=== PATIENT | female | born 1955 | race Caucasian/White ===

== ENCOUNTER 2022-08-24 05:27 | Observation (INO) ==
--- NOTE | 2022-08-08 15:00 | PAT Medication Instructions ---
Medication Instructions Date of Service August 08, 2022 Home Medications acetaminophen 300 mg-codeine 30 mg tablet 1 tab PO DAILY PRN acetaminophen 500 mg capsule 500 mg PO Q6H PRN bupropion HCl 150 mg 24 hr tablet, extended release 150 mg PO QAM cholecalciferol (vitamin D3) 125 mcg (5,000 unit) tablet (Vitamin D3) 125 mcg PO QAM ergocalciferol (vitamin D2) 1,250 mcg (50,000 unit) capsule (Vitamin D2) 1,250 mcg PO WK escitalopram oxalate 20 mg tablet 20 mg PO QAM teriparatide 20 mcg/dose (600 mcg/2.4 mL) subcutaneous pen injector (Forteo) 20 mcg subcut QAM Continue as directed teriparatide 20 mcg/dose (600 mcg/2.4 mL) subcutaneous pen injector (Forteo) 20 mcg subcut QAM DO NOT take the morning of surgery cholecalciferol (vitamin D3) 125 mcg (5,000 unit) tablet (Vitamin D3) 125 mcg PO QAM ergocalciferol (vitamin D2) 1,250 mcg (50,000 unit) capsule (Vitamin D2) 1,250 mcg PO WK Take morning of surgery With a small sip of water, OTHERWISE NOTHING TO EAT OR DRINK AFTER MIDNIGHT: acetaminophen 300 mg-codeine 30 mg tablet 1 tab PO DAILY PRN(if needed) acetaminophen 500 mg capsule 500 mg PO Q6H PRN(if needed) bupropion HCl 150 mg 24 hr tablet, extended release 150 mg PO QAM escitalopram oxalate 20 mg tablet 20 mg PO QAM Take evening before surgery acetaminophen 300 mg-codeine 30 mg tablet 1 tab PO DAILY PRN(if needed) acetaminophen 500 mg capsule 500 mg PO Q6H PRN(if needed) Other Notes If you have any questions please call us at [phone] or [phone] or [phone] or [phone]
--- NOTE | 2022-08-12 09:48 | Anesthesiology Consultation ---
Date of Service August 12, 2022 Assessment & Plan (1) Encounter for pre-operative examination: Outpatient joint assessment: Patient is currently scheduled for inpatient pathway. If re-evaluated pending system levels during current pandemic/surgeon requests outpatient pathway, patient is not recommended candidate for outpatient joint program from anesthesia standpoint. Chart Review Chart Review: Acceptable Risk for Surgery and Patient seen in Pre Admission Testing Teaching & Discussion Pre-Anesthesia Teaching/Discussion Notes: Instructed NPO after midnight before surgery, except medications with 15 cc of water. Medication instructions provided according to the PAT guidelines. History Surgery Operation Date: 08/24/22 10:35 Proposed Procedures p Left Total Knee Arthroplasty - Hardy West MD Height/Weight Height: 5 ft 2 in Weight: 70 kg Allergies Allergy/AdvReac Type Severity Reaction Status Date / Time latex Allergy Intermediate Rash Verified 08/05/22 12:58 trazodone Allergy Anaphylaxis Verified 08/05/22 12:58 black leslie Allergy Hives, Uncoded 08/05/22 12:58 n/v, sore throat Medications Home Medications Medication Instructions Recorded Confirmed Last Taken acetaminophen 300 mg-codeine 30 mg 1 tab PO DAILY PRN Pain 08/05/22 08/05/22 Unknown tablet acetaminophen 500 mg capsule 500 mg PO Q6H PRN Pain 08/05/22 08/05/22 Unknown bupropion HCl 150 mg 24 hr tablet, 150 mg PO QAM 08/05/22 08/05/22 Unknown extended release cholecalciferol (vitamin D3) 125 125 mcg PO QAM 08/05/22 08/05/22 Unknown mcg (5,000 unit) tablet (Vitamin D3) ergocalciferol (vitamin D2) 1,250 1,250 mcg PO WK 08/05/22 08/05/22 Unknown mcg (50,000 unit) capsule (Vitamin D2) escitalopram oxalate 20 mg tablet 20 mg PO QAM 08/05/22 08/05/22 Unknown teriparatide 20 mcg/dose (600 20 mcg subcut QAM 08/05/22 08/05/22 Unknown mcg/2.4 mL) subcutaneous pen injector (Forteo) Past Medical History Medical History (Updated 08/12/22 @ 10:04 by Odalis Rouse PA-C) Anxiety and depression Frozen shoulder hx-R GERD (gastroesophageal reflux disease) resolved with cessation of coffee intake History of migraine PONV (postoperative nausea and vomiting) Patient denies h/o stroke, seizures, heart attack, heart failure, DM, HTN, blood clots or blood transfusions. Exercise / Class Metabolic Activity II 4-5 Yardwork/Stairs/Walk up hill (denies chest discomfort or shortness of breath with 1 FOS) Past Family History Family History Other No family history of adverse response to anesthesia Past Surgical History Surgical History (Updated 08/12/22 @ 10:01 by Odalis oRuse PA-C) History of D&C D&E x 2 History of reduction of closed fracture R arm History of tooth extraction Past Anesthesia History No Hx of Anesthesia Complications and No Family Hx of Anesthesia Complications History of PONV History of PONV (after a D&C, pt states she walked home and had nausea when home, denies immediate post-op nausea and vomiting) and Hx of Motion Sickness Social History Smoking Status: Never smoker Do You Dip or Chew Tobacco: No Hx Alcohol Use: Yes alcohol intake frequency: holidays/special occasions only Hx Substance Use: Yes substance use type: marijuana (in 20s) and other (acid in 20s) Review of Systems Occasional nonproductive cough per pt with current allergies. Patient denies chest pain, shortness of breath, dyspnea on exertion, snoring, witnessed apneas, fever, chills, wheezing, or palpitations. Physical Exam Vital Signs Vitals BP 131/85 P 83 SP02 98% on RA RESP 18 Physical Full cervical extension range of motion without pain TMD 3.5 finger breadths Mallampati Score 2 Dentition: intact, denies chipped or loose teeth, caps/crowns, implants or bridges Lungs: normal respiratory effort. Good air movement, clear throughout to auscultation, no adventitious breath sounds Cardiac: regular rate and rhythm, no murmurs noted Carotid arteries: negative bruit bilat Lab Results Anesthesia Preop Results Results Anesthesia Widget: WBC 7.08 K/ul (4.8-10.8) 08/12/22 Hgb 14.4 g/dl (12.0-16.0) 08/12/22 Hct 41.3 % (37.0-47.0) 08/12/22 Plt 311 K/uL (130-400) 08/12/22 Na 138 mmol/L (136-145) 08/12/22 K 4.5 mmol/L (3.5-5.1) 08/12/22 Cl 103 mmol/L (98-107) 08/12/22 CO2 28 mmol/L (21-32) 08/12/22 BUN 14 mg/dl (6-23) 08/12/22 Creat 0.90 mg/dl (0.6-1.2) 08/12/22 Glucose Level 100 mg/dl (70-99(Fasting)) H 08/12/22 PT 10.1 Seconds (9.0-12.0) 08/12/22 PTT 26.8 Seconds (21.0-31.0) 08/12/22 INR 0.9 (0.9-1.1) 08/12/22 Urine Color Yellow 08/12/22 Urine Appearance Turbid (Clear) A 08/12/22 Urine pH 7.5 (4.5-7.5) 08/12/22 Urine Specific [place] 1.018 (1.000-1.030) 08/12/22 Urine Protein Trace (Negative) H 08/12/22 Urine Glucose (UA) Negative (Negative) 08/12/22 Urine Ketones Negative (Negative) 08/12/22 Urine Blood Trace (Negative) H 08/12/22 Urine Nitrite Negative (Negative) 08/12/22 Urine Bilirubin Negative (Negative) 08/12/22 Urine Urobilinogen Negative (Negative) 08/12/22 Urine Leukocyte Esterase 3+ (Negative) H 08/12/22 Urine WBC (Auto) >30 /hpf (0-5) H 08/12/22 Urine RBC (Auto) 0-4 /hpf (0-4) 08/12/22 Urine Hyaline Casts (Auto) 5-10 /lpf (0-5) H 08/12/22 Urine Epithelial Cells (Auto) >30 /lpf (0-5) H 08/12/22 Urine Bacteria (Auto) 3+ (Negative) H 08/12/22 Blood Type B Negative 08/12/22 Antibody Screen NEGATIVE 08/12/22 Testing Laboratory Results Surgeon's office made aware of abnormal UA. Electrocardiogram Date: 08/12/22 NSR, rate 75 bpm Low voltage QRS Chest X-Ray Date: 08/12/22 The lungs are clear. Cardiac silhouette is normal in size. No pleural effusions. No pneumothorax. IMPRESSION: No acute process. COVID-19 Risk Screen Screening Information COVID-19 Screen Date: 08/12/22 Exposure 21 Days Family/Household +COVID Last 21 Days: No Exposure 10 Days Any COVID Exposure Last 10 Days: No Symptoms Last 10 Days Experienced COVID Sx Last 10 Days: No + COVID 0-90 Days COVID + in Last 0-90 Days: No
--- NOTE | 2022-08-17 10:50 | History & Physical Report ---
Date of Service August 17, 2022 Assessment & Plan (1) Primary osteoarthritis of left knee: Plan: Treatment options discussed with patient. She will stop. Measures. She would like to proceed with surgical intervention. Risks, benefits and alternatives to surgery including but not limited to infection, DVT, pain, stiffness, need for revision surgery, damage to blood vessels, damage to nerves, PE, , were discussed with the patient and they wish to proceed. Plan for left total knee arthroplasty scheduled for [facility] on August [address] West. Plan on home health PT postop. Plan on aspirin 81 mg twice daily for 1 month postop for DVT prophylaxis. All questions answered. Patient will follow-up postop. History of Present Illness Chief Complaint: Left knee pain Primary Care Provider: NBA Hicks 66-year-old female with past medical history significant for anxiety and de pression with ongoing left knee pain. Patient has failed conservative measures including anti-inflammatories and steroid injection, as well as protected weightbearing. Pain is interfering with her daily activities. She would like to proceed with surgical intervention. Patient denies headaches, sweats, fevers, chills, double vision, blurred vision, cough, sore throat, dysphagia, chest pain, sob, wheezing, n/v/d/c, numbness, tingling, fatigue, urinary symptoms, mood disorders. ROS positive for left knee pain and stiffness. Allergies Allergy/AdvReac Type Severity Reaction Status Date / Time latex Allergy Intermediate Rash Verified 08/05/22 12:58 trazodone Allergy Anaphylaxis Verified 08/05/22 12:58 black leslie Allergy Hives, Uncoded 08/05/22 12:58 n/v, sore throat Home Medications Medication Instructions Recorded Confirmed Type acetaminophen 300 mg-codeine 30 mg 1 tab PO DAILY PRN Pain 08/05/22 08/05/22 History tablet acetaminophen 500 mg capsule 500 mg PO Q6H PRN Pain 08/05/22 08/05/22 History bupropion HCl 150 mg 24 hr tablet, 150 mg PO QAM 08/05/22 08/05/22 History extended release cholecalciferol (vitamin D3) 125 125 mcg PO QAM 08/05/22 08/05/22 History mcg (5,000 unit) tablet (Vitamin D3) ergocalciferol (vitamin D2) 1,250 1,250 mcg PO WK 08/05/22 08/05/22 History mcg (50,000 unit) capsule (Vitamin D2) escitalopram oxalate 20 mg tablet 20 mg PO QAM 08/05/22 08/05/22 History teriparatide 20 mcg/dose (600 20 mcg subcut QAM 08/05/22 08/05/22 History mcg/2.4 mL) subcutaneous pen injector (Forteo) Past Med/Surg History Medical History (Updated 08/17/22 @ 10:49 by Matthew Acosta PA-C) Anxiety and depression Frozen shoulder hx-R GERD (gastroesophageal reflux disease) resolved with cessation of coffee intake History of migraine PONV (postoperative nausea and vomiting) Surgical History (Updated 08/12/22 @ 10:01 by Odalis Rouse PA-C) History of D&C D&E x 2 History of reduction of closed fracture R arm History of tooth extraction Family History Other No family history of adverse response to anesthesia Social History Smoking Status: Never smoker Second Hand Exposure: Yes (as a child); Hx Alcohol Use: Yes Hx Substance Use: Yes Preferred Language: Turkish Communication Ability: Effective Stone Lathe Operator Required: No Beliefs That Will Affect Care: None Current Living Situation: Alone Feels Safe at Home: Yes Assistive Devices: Cane and Glasses Review of Systems All systems reviewed & are unremarkable except as noted in HPI & below Physical Exam Constitutional: well developed and well nourished; no acute distress Eyes: PERRL, conjunctivae normal, anicteric sclerae ENMT: external ear and nose normal, oropharynx normal Neck: trachea midline, no thyromegaly Respiratory: normal respiratory effort, lungs clear to auscultation Cardiovascular: RRR, no murmur, no edema Musculoskeletal: Left knee: Mild joint effusion. Tenderness patellofemoral compartment as well as medial joint line. Stable to valgus and varus stress test. Positive Alice's. Range of motion is 10-110 degrees Skin: no rashes, warm and dry Neurologic: patellar DTR's 2+ bilat, sensation intact Psychiatric: A+Ox3, euthymic affect Results & Data Diagnostic Findings Left knee radiographs demonstrate osteopenic appearance. Patient has [id number] lateral patellofemoral compartment. MRI demonstrates insufficiency fracture, possible area of osteonecrosis medial femoral condyle.
[2022-08-24] MEDS ORDERED: dexAMETHasone 4 MG TAB PO SCH (06:00)
[2022-08-24] MEDS ORDERED: METOCLOPRAMIDE HCL 10 MG TABLET PO SCH (06:00)
[2022-08-24] MEDS ORDERED: LR 500ML BOLUS, THEN 15ML/HR IV SCH (06:00)
[2022-08-24] MEDS ORDERED: CeleBREX 200 MG CAP PO SCH (06:00)
[2022-08-24] MEDS ORDERED: FAMOTIDINE 20 MG TAB PO SCH (06:00)
[2022-08-24] MEDS ORDERED: GABAPENTIN 300 MG CAP PO SCH (06:00)
[2022-08-24] MEDS ORDERED: ACETAMINOPHEN 500 MG TAB PO SCH (06:00)
[2022-08-24] MEDS ORDERED: TRANEXAMIC ACID 1,000 MG **IV Intra-op IV SCH (06:00)
[2022-08-24] MEDS ORDERED: ceFAZolin 2000MG 2,000 MG/15 ML SYR IV SCH (06:00)
[2022-08-24] MEDS ORDERED: TRANEXAMIC ACID 1,000 MG **IV Pre-op IV SCH (06:00)
[2022-08-24] MEDS ORDERED: ROPIVACAINE 0.5% HCL/PF 150 MG, BUPIVACAINE 0.75% MPF 20 ML, EPINEPHrine 30MG/30ML (OR ... INSTIL SCH (06:00)
[2022-08-24] MEDS ORDERED: ROPIVACAINE 0.5% 5 MG/ML 30 ML VIAL ONE (06:14)
[2022-08-24] MEDS ORDERED: ORTHO JOINT ANESTHETIC ONE (06:47)
[2022-08-24] MEDS ORDERED: PROPOFOL IV EMULSION 10 MG/ML 20 ML VIAL IV ONE ×6 (06:53→08:08)
[2022-08-24] MEDS ORDERED: ONDANSETRON INJ 2 MG/ML 2 ML VIAL ONE (06:53)
[2022-08-24] MEDS ORDERED: MIDAZOLAM HCL 1 MG/ML 2ML VIAL ONE ×2 (06:53→07:10)
[2022-08-24] MEDS ORDERED: LIDOCAINE 2% 2 ML VIAL/AMP(20MG/ML) INFIL ONE (06:53)
[2022-08-24] MEDS ORDERED: DEXAMETHASONE SOD INJ 4 MG/ML VIAL ONE (06:53)
[2022-08-24] MEDS ORDERED: fentaNYL citrate PF 100 MCG/2 ML VIAL ONE ×2 (06:53→08:18)
[2022-08-24] MEDS ORDERED: HYDROmorphone INJ 2 MG/ML SYR/VIAL IV PRN (06:56)
[2022-08-24] MEDS ORDERED: ePHEDrine sulfate 50 MG/ML AMP IV PRN (06:56)
[2022-08-24] MEDS ORDERED: ONDANSETRON INJ 2 MG/ML 2 ML VIAL IV PRN ×2 (06:56→11:38)
[2022-08-24] MEDS ORDERED: ATROPINE SULFATE 0.1 MG/ML 10ML SYR IV PRN (06:56)
[2022-08-24] MEDS ORDERED: fentaNYL citrate PF 100 MCG/2 ML VIAL IV PRN (06:56)
--- NOTE | 2022-08-24 07:13 | History & Physical Bridge Note ---
Date of Service August 24, 2022 History & Physical Bridge Note I have examined the patient, reviewed the History & Physical and in the interval since the performance of the History & Physical I have noted the following changes of clinical significance: no changes noted
[2022-08-24] MEDS ORDERED: ROCURONIUM BROMIDE 10 MG/ML 5 ML VIAL IV ONE ×5 (07:26→07:45)
[2022-08-24] MEDS ORDERED: GLYCOPYRROLATE 0.2 MG/ML VIAL ONE (07:54)
[2022-08-24] MEDS ORDERED: NEOSTIGMINE METHYLSULFATE 1 MG/ML 10ML VIAL ONE (07:54)
--- NOTE | 2022-08-24 09:51 | Post Operative Brief Note ---
Immediate Post Op Note v1 Date of Surgery August 24, 2022 Pre & Post Diagnosis Operation Date: 08/24/22 07:15 Pre-Op Diagnosis: Primary osteoarthritis of left knee, insufficiency fracture medial femoral condyle, complex medial meniscus tear large radial tear, patellofemoral malalignment Post-Op Diagnosis: Primary osteoarthritis of left knee, insufficiency fracture medial femoral condyle, complex medial meniscus tear large radial tear, patellofemoral malalignment I identified the patient and participated in the time-out.: Yes Procedure Operation Date: 08/24/22 07:15 Actual Procedures p Left Total Knee Arthroplasty, lateral release, cali Acticoat superficial wound VAC- Hardy West MD Surgeon Hardy West MD Alteration Worker Jamie QUEZADA Estimated Blood Loss 10 Findings Consistent with Post-Op Diagnosis Specimens Medial femoral condyle assessed insufficiency fracture versus AVN Other bone cuts Drains Hemovac Drain Anesthesia Type General Regional Complications none Disposition Disposition: Recovery Room Overlapping Procedure I was immediately available: during the entire case.
[2022-08-24] MEDS ORDERED: MoRPHine SULFATE 2 MG/ML CARP ONE (09:55)
[2022-08-24] MEDS ORDERED: METOPROLOL TARTRATE 1 MG/ML VIAL IV ONE (10:24)
[2022-08-24] MEDS ORDERED: FLUMAZENIL 0.1 MG/1 ML 10 ML VIAL IV ONE (10:35)
--- NOTE | 2022-08-24 10:48 | Operative Report ---
Post Operative Report Pre & Post Diagnosis Operation Date: 08/24/22 07:15 Pre-Op Diagnosis: Primary osteoarthritis of left knee, insufficiency fracture medial femoral condyle, complex radial meniscus tear medial meniscus, patellofemoral malalignment, localized obesity left lower extremity BMI 34.6 Post-Op Diagnosis: Primary osteoarthritis of left knee, insufficiency fracture medial femoral condyle with collapse, complex radial medial meniscus tear, patellofemoral malalignment with bone loss patella, localized obesity left lower extremity BMI 34.6 I identified the patient and participated in the time-out.: Yes Procedure Operation Date: 08/24/22 07:15 Actual Procedures p Left Total Knee Arthroplasty, lateral release, lashawn and Acticoat superficial wound VAC.- Hardy West MD Surgeon Hardy West MD Chemicals Fermentation Operator Jamie QUEZADA Estimated Blood Loss 10 Findings Consistent with Post-Op Diagnosis Specimens 1. Medial femoral condyle insufficiency fracture rule out AVN 2 other bone cuts Drains 2 Hemovac drains Anesthesia Type General Regional Complications none Disposition Disposition: Recovery Room Indications 66-year-old female with left knee pain with subacute insufficiency fracture medial femoral condyle with bone edema and associated radial tear complex meniscus tear extending out to the MCL with pre-existing grade 4 patellofemoral osteoarthritis with patellofemoral malalignment lateral tracking patella with some bone loss patella. Description of Procedure Patient was taken to the operating room placed supine on the operating table and anesthetized under general regional block anesthesia. Exam under anesthesia demonstrated good range of motion lateral tracking patella patellofemoral crepitation and a moderate effusion. There was generalized obesity around the anterior knee and obesity of the thigh as well. A pneumatic tourniquet was placed about the obese thigh of the left lower extremity. The left lower extremity was prepped and draped in usual sterile fashion. The leg was elevated exsanguinated with an Esmarch bandage and the pneumatic tourniquet was raised to 325 mm mercury. An anterior incision was made across the left knee. The skin was incised longitudinally subcutaneous flaps were elevated and an incision was made through the medial retinaculum extending up into the mid third of the quadriceps tendon and extended down to the medial tibial tubercle. Intra- articular findings demonstrated there was eburnated bone in the patellofemoral joint with significant bone loss of the lateral facet of the patella. There was a large lateral osteophyte off the patella. There was eburnated bone on the lateral facet of the femur extending into the trochlear groove. In the weig htbearing area of the medial femoral condyle there is a large insufficiency fracture with collapse and of soft subchondral bone with unstable articular surface. The tibia had grade 3 central localized chondromalacia. Of the medial meniscus the ACL and PCL were intact. Lateral compartment was normal. There was a large radial tear extending out to the MCL with unstable flaps. There was diffuse synovitis and moderately large knee effusion that was evacuated. The knee was exposed by excising some of the infrapatellar fat pad, excising the menisci and anterior cruciate ligament. Any inflamed synovial tissue was resected. The fat pad over the anterior femur was resected for placement of the component in that area. The lateral synovial bands were released. The femur was exposed. The custom femoral cutting block was pinned in position. The distal femoral cutting block was applied. The distal femoral cut was made with the oscillating saw. On the medial side this was deep to the pathology of the medial femoral condyle and the bone underlying it appeared to be solid to finger press touch. The cut of the medial femoral condyle was sent for specimen. The size 10, 4-in-1 cutting block was placed. The anterior and posterior chamfer cuts were made. The knee was extended and a subperiosteal peel lateral release was performed around the patella. The patella width was measured with a caliper. There was significant bone loss of the lateral facet due to lateral tracking. I could not make a cut deep to the most deficient area of the bone on the lateral side so the cut was made just above that at 12 mm thickness cut on the patella. The cut surface was amenable to placing a 32 mm component on and the area of bone loss below that area was curetted to enhance cement fixation filling the defect which was to the far lateral side of the patella component. The 32 millimeter symmetrical all poly patella was used. 3 drill holes are made for the pegs. Some of the excess spurring and lateral patella bone was removed with a rongeur and beveled off to prevent any impingement. The tibia was exposed. A custom tibial cutting block was positioned and drill holes were made for the cutting guide. Cutting guide was placed and the proximal cut was made with the oscillating saw at the +0 cut line. All osteophytes were resected. The [employer] was used to assess ligamentous balance and the ligaments were balanced in extension and flexion. No releases were required. The tibia was reexposed and measured for a size E tibial component which was the smallest that could be used for a 10 femur. This was externally rotated in line with the tibial tubercle and the fixation pins were drilled. The proximal tibia was fashioned with the drill and punch. The size 10 CR femoral trial was inserted. The 10 femur was too large as there were was an anterior posterior medial lateral mismatch. The femur was downsized to a size 9 making the appropriate cuts after reinserting a 9 cutting block. The trial MC inserts were used. The 10 mm insert appeared to be too tight as the knee cannot come out to full extension. I chose to revise the tibial cut take off 2 more millimeters which was performed with the appropriate guide and then we downsized the tibial component to a size D tibia. A size 10 MC insert now gave full range of motion however the patella tracked laterally. A lateral release was performed leaving the synovium intact and this allowed the patella to track centrally. the trials were removed. The orthomix anesthetic cocktail was injected per protocol. The knee was then copiously irrigated with pulsatile lavage saline solution. The final components were cemented with Refobacin bone cement. The final components were [employer] persona size left narrow 9 CR femoral component, left D tibia, left 10 MC tibial polyethylene and a 32 x 8.5 mm symmetrical all polyethylene patella. After the cement cured with the knee in full extension the Betadine soak was used per protocol. The knee joint was copiously irrigated with pulsatile lavage saline solution . 2 drains were brought out laterally and connected to a Hemovac. The quadriceps tendon and medial retinaculum were closed with interrupted [id number] and simple #2 FiberWire sutures in the VMO area and interrupted [id number] #1 Vicryl sutures throughout the entire closure.. The knee was taken through a full range of motion which was 0 through 135 degrees and the repair was secure. The subcutaneous tissues were closed with 2-0 Vicryl sutures and skin was closed with lulu.A Lashawn and Acticoat superficial wound VAC was applied and the patient tolerated the procedure well. Jamie QUEZADA my physician resident programs assistant participated as assistant project manager and was an integral part in all aspects of the procedure, he assisted in soft tissue retraction, instrument management ,leg positioning, the closure, application of superficial wound VAC and will participate in the postoperative care of the patient. I attest to the content of the Intraoperative Record and any orders documented therein. Any exceptions are noted below.
--- NOTE | 2022-08-24 11:08 | XRay Report ---
XR knee LT 1 or 2V routine CLINICAL HISTORY: Postoperative evaluation. COMPARISON: Left knee radiographs May 15, 2022. FINDINGS: Alignment of the total left knee arthroplasty is anatomic. There is no periprosthetic frac ture. There are no unexpected radiopaque foreign bodies. There are drains and skin lulu. IMPRESSION: Expected findings following total left knee arthroplasty. ACT 112: Negative or not required by law. Electronically signed by: Davion Still M.D. 08/24/2022 11:07 AM
[2022-08-24] MEDS ORDERED: bisacodyL 10 MG SUPP PR PRN (11:38)
[2022-08-24] MEDS ORDERED: HYDROmorphone INJ 0.5 MG/0.5 ML SYR IV PRN (11:38)
[2022-08-24] MEDS ORDERED: METOCLOPRAMIDE HCL INJ 5 MG/ML 2 ML VIAL IV PRN (11:38)
[2022-08-24] MEDS ORDERED: SODIUM CHLORIDE 0.9% 1000ML 1,000 ML IV SCH (11:38)
[2022-08-24] MEDS ORDERED: NALOXONE HCL 0.4 MG/1 ML VIAL/CARP IV PRN (11:38)
[2022-08-24] MEDS ORDERED: MAGNESIUM HYDROXIDE SUSP 30 ML UDC PO PRN (11:38)
--- NOTE | 2022-08-24 11:55 | Hospitalist Consultation ---
Date of Consultation August 24, 2022 Assessment & Plan (1) Status post left knee replacement: -Pain control, perioperative abx, DVT PPX, and IV fluids per the primary team -Currently stable -Agree with AM CBC and BMP tomorrow, we will follow -Adding daily famotidine for stress ulcer ppx -Thank you for allowing us to participate in the care of this patient, please reach out with any questions or concerns -Medicine will continue to follow (2) Anxiety and depression: -Continue Lexapro and Wellbutrin (3) GERD (gastroesophageal reflux disease): -Daily famotidine while admitted Plan The patient was discussed with Dr. Qureshi at the time of the admission Supervising Physician Co-Signing Physician Notes I personally saw and examined the patient. I verified all ambrosio points and agree with Nilesh Silva PA-C with the following exceptions and/or additions: 66 year old female POD#0 left TKA. EBL 10ml. Depression and anxiety under cont rol. Chronic constipation. O/E HS RRR, no murmurs, Chest CTAB, Abdo SNT A/P Pain/VTE per primary orthopedics team MiraLAX added to bowel regimen given chronic problems with constipation Otherwise chronic medical conditions under control History of Present Illness Reason for Consultation: Post-op medical management Requesting Physician: Hardy West MD Attending Physician: Dr. John Qureshi History of Present Illness Urmila is a 66 year old female with a PMH significant for anxiety, depression, osteoarthritis, and osteopetrosis who presented to the [facility] OR on for Left Total Knee Arthroplasty, lateral release, cali and Acticoat superficial wound VAC. with Dr. West. Of note, the patient was reportedly saturating at 83% and placed on 4L NC prior to my exam, otherwise vitals have been stable. Per the operative report EBL was listed as 10 cc, anesthesia was listed as "General and regional", and there were no reported intraoperative complications. At the time of the exam the patient was lying in bed in no acute distress with her friend sitting bedside. She was saturating at 97% on 4L NC, I turned her O2 off and she remained stable throughout my exam. She states that she had multiple previous injuries to the left knee and failed conservative therapy. Currently with mild pain at the procedure site, otherwise she is feeling well. Please refer to Dr. Qureshi's attestation for any changes to the treatment plan Allergies Allergy/AdvReac Type Severity Reaction Status Date / Time trazodone Allergy Anaphylaxis Verified 08/24/22 05:52 black leslie Allergy Hives, Uncoded 08/24/22 05:52 n/v, sore throat Home Medications Medication Instructions Recorded Confirmed Type acetaminophen 300 mg-codeine 30 mg 1 tab PO DAILY PRN Pain 08/05/22 08/24/22 History tablet acetaminophen 500 mg capsule 500 mg PO Q6H PRN Pain 08/05/22 08/24/22 History bupropion HCl 150 mg 24 hr tablet, 150 mg PO QAM 08/05/22 08/24/22 History extended release cholecalciferol (vitamin D3) 125 125 mcg PO QAM 08/05/22 08/24/22 History mcg (5,000 unit) tablet (Vitamin D3) ergocalciferol (vitamin D2) 1,250 1,250 mcg PO WK 08/05/22 08/24/22 History mcg (50,000 unit) capsule (Vitamin D2) escitalopram oxalate 20 mg tablet 20 mg PO QAM 08/05/22 08/24/22 History teriparatide 20 mcg/dose (600 20 mcg subcut QAM 08/05/22 08/24/22 History mcg/2.4 mL) subcutaneous pen injector (Forteo) Patient History Medical History (Updated 08/24/22 @ 12:14 by Nilesh Silva PA-C) Anxiety and depression Frozen shoulder hx-R GERD (gastroesophageal reflux disease) resolved with cessation of coffee intake History of migraine PONV (postoperative nausea and vomiting) Surgical History (Updated 08/24/22 @ 12:14 by Nilesh Silva PA-C) History of D&C D&E x 2 History of reduction of closed fracture R arm History of tooth extraction Family History Other No family history of adverse response to anesthesia Social History Smoking Status: Never smoker Second Hand Exposure: Yes (as a child); Do You Dip or Chew Tobacco: No; Hx Alcohol Use: Yes Hx Substance Use: Yes Preferred Language: Serbian Communication Ability: Effective Flight Dispatcher Required: No Beliefs That Will Affect Care: None Current Living Situation: Alone Feels Safe at Home: Yes Safety Concerns: Feels Safe At This Time Assistive Devices: Cane and Glasses Physical Exam Physical Exam: Physical Exam: General: In no acute distress, stated age, well-nourished, good hygiene HEENT: Normocephalic, atraumatic, no scleral icterus, pupils around round, symmetrical, and reactive to light, moist mucus membranes, trachea midline, no thyromegaly Chest/Pulm: No respiratory distress, symmetrical chest expansion, clear breath sounds throughout Cardiac: RRR, no murmurs noted Abdomen: Negative for ascites and bruising, normoactive bowel sounds, soft, non-tender to palpation throughout Musculoskeletal: LLE currently with wrap over the surgical site and drain in place, intact BL sensation and motor function in the LE's Extremities: Radial, dorsalis pedis, and posterior tibial pulses are intact and symmetrical, Currently with BL SCD's in place Skin: Warm, dry, no rashes , lesions, or scars noted Neuro: Alert and oriented to person, place, month, year, and president, no focal defects, no tremors noted Psych: No acute distress, calm and cooperative during the exam Results & Data Results & Data Vital Signs (Past 12 Hours) Vital Signs Temp Pulse Pulse Resp BP Pulse Ox O2 Del Method 08/24/22 11:40 36.7 C 71 12 125/71 97 Nasal Cannula 08/24/22 11:20 36.7 C 72 15 124/67 93 Nasal Cannula 08/24/22 11:10 77 18 133/64 98 Nasal Cannula 08/24/22 11:00 73 14 130/83 95 Oxymask 08/24/22 10:50 77 13 136/66 92 Oxymask 08/24/22 10:42 36.5 C 78 14 147/84 H 83 L Oxymask 08/24/22 05:57 36.8 C 83 18 140/84 95 Room Air O2 Flow Rate 08/24/22 11:40 4 08/24/22 11:20 4 08/24/22 11:10 4 08/24/22 11:00 15 08/24/22 10:50 15 08/24/22 10:42 15 08/24/22 05:57 Diagnostic Findings Knee X-Ray 08/24/22 10:36 XR knee LT 1 or 2V routine CLINICAL HISTORY: Postoperative evaluation. COMPARISON: Left knee radiographs May 15, 2022. FINDINGS: Alignment of the total left knee arthroplasty is anatomic. There is no periprosthetic fracture. There are no unexpected radiopaque foreign bodies. There are drains and skin lulu. IMPRESSION: Expected findings following total left knee arthroplasty. ACT 112: Negative or not required by law. Electronically signed by: Davion Still M.D. 08/24/2022 11:07 AM PG Care Time/CCT Total # of Minutes Spent Total Time Spent with Patient: Total time spent is greater than 50% in coordination of care (as documented) at patient's floor/unit and/or counseling patient: Coding [place] [address] IN/OBS CONSULT LVL 3,45M Patient Type Established Medical Decision Making Moderate Complexity Diagnoses Status post left knee replacement Z96.652 Anxiety and depression F41.9; F32.A GERD (gastroesophageal reflux disease) K21.9
--- NOTE | 2022-08-24 12:12 | Anesthesiology Progress Note ---
Date of Service August 24, 2022 Anesthesia Post Procedure Vital Signs Vital Signs: Temp Pulse Pulse Resp BP Pulse Ox O2 Del Method 08/24/22 11:40 36.7 C 71 12 125/71 97 Nasal Cannula 08/24/22 11:20 36.7 C 72 15 124/67 93 Nasal Cannula 08/24/22 11:10 77 18 133/64 98 Nasal Cannula 08/24/22 11:00 73 14 130/83 95 Oxymask 08/24/22 10:50 77 13 136/66 92 Oxymask 08/24/22 10:42 36.5 C 78 14 147/84 H 83 L Oxymask 08/24/22 05:57 36.8 C 83 18 140/84 95 Room Air O2 Flow Rate 08/24/22 11:40 4 08/24/22 11:20 4 08/24/22 11:10 4 08/24/22 11:00 15 08/24/22 10:50 15 08/24/22 10:42 15 08/24/22 05:57 Pain Intensity Left Knee: Pain Intensity: 4 Transfer of Care Handoff Completed per policy Notes Mental Status: alert / awake / arousable and participated in evaluation Patient Amnestic to Procedure: Yes Nausea / Vomiting: adequately controlled Pain: adequately controlled Airway Patency, RR, SpO2: stable & adequate BP & HR: stable & adequate Hydration State: stable & adequate Anesthetic Complications: no major complications apparent and Pt Satisfied with anesthetic care
[2022-08-24] MEDS: ACETAMINOPHEN 500 MG TAB PO SCH ×2 (14:24→20:37)
[2022-08-24] MEDS: ceFAZolin 2000MG 2,000 MG/15 ML SYR IV SCH (16:48)
[2022-08-24] MEDS: DOCUSATE SODIUM 100 MG CAP PO SCH (20:36)
[2022-08-24] MEDS: ASPIRIN 81 MG ECTAB PO SCH (20:36)
[2022-08-24] MEDS: CeleBREX 200 MG CAP PO SCH (20:36)
[2022-08-24] MEDS ORDERED: SENNA 8.6 MG TAB PO SCH (21:00)
[2022-08-25] MEDS: ceFAZolin 2000MG 2,000 MG/15 ML SYR IV SCH (00:38)
[2022-08-25] MEDS: oxyCODONE HCL IR 5 MG TAB (IMMEDIATE RELEASE) PO PRN ×3 (00:47→14:07)
[2022-08-25] MEDS: ACETAMINOPHEN 500 MG TAB PO SCH ×2 (06:03→13:07)
[2022-08-25 07:29] LABS: Hematocrit (blood only) 36.4 % (37.0-47.0); Hemoglobin 12.4 g/dl (12.0-16.0); Mean Corpuscular Hemoglobin 29.7 pg (25.0-34.0); Mean Corpuscular Hgb Conc 34.1 g/dL (32.0-36.0); Mean Corpuscular Volume 87.1 fL (80.0-100.0); Mean Platelet Volume 8.8 fL (9.4-12.4); Platelet Count 308 K/uL (130-400); RDW Coefficient of Variation 12.6 % (11.5-14.5); RDW Standard Deviation 40.3 fL (36.4-46.3); Red Blood Count 4.18 M/uL (4.20-5.40); White Blood Count 14.92 K/ul (4.8-10.8)
[2022-08-25] MEDS: CeleBREX 200 MG CAP PO SCH (07:42)
[2022-08-25] MEDS: DOCUSATE SODIUM 100 MG CAP PO SCH (07:42)
[2022-08-25] MEDS: ASPIRIN 81 MG ECTAB PO SCH (07:42)
--- NOTE | 2022-08-25 07:43 | Orthopedic Progress Note ---
Date of Service August 25, 2022 Assessment & Plan (1) Primary osteoarthritis of left knee: Plan: Postop day 1 left total knee arthroplasty -PT/OT -DVT prophylaxis: SCDs, teds, aspirin 81 mg twice daily -Pain management as written -AM labs: Mild leukocytosis likely reactive due to surgical stress versus perioperative steroids. Patient is asymptomatic. Hemoglobin 12.4 from 14.4 preop. Acute blood loss anemia due to surgical loss versus dilutional. Chemistries are pending. -Discharge planning: Patient will likely need inpatient rehab stay prior to to going home. Patient lives on the third story of her apartment building with 3 flights of stairs. Await PT evals. Case management consult placed. Addendum: Patient did very well with stairs wit therapy and recommend d/c home. Patient would like to go home today. Order placed if okay with medicine team. Admission and Anticipated Discharge Date Admission Date: August 24, 2022 Subjective Patient is postop day 1 left total knee. She is doing well this morning. Pain is controlled. She has no current complaints. Denies chest pain, shortness of breath, nausea/vomiting/diarrhea, headaches or dizziness. Review of Systems Review of Systems: All systems reviewed & are unremarkable except as noted in Subjective Physical Exam Physical Exam: Left knee: Dressing is clean, dry, intact. Hemovac in place, cali on suction. Toes are mobile with good dorsiflexion. No calf tenderness. Distally neurovascular status and sensation is grossly intact. Constitutional: WD/WN, vitals as above Results & Data Vital Signs (Past 12 Hours) Vital Signs Temp Pulse Resp BP Pulse Ox O2 Del Method 08/25/22 06:01 36.9 C 80 18 99/61 L 96 Room Air 08/25/22 00:38 36.9 C 81 15 104/58 L 95 Room Air 08/24/22 20:39 82 18 95 Room Air Laboratory Results Lab Results 08/24/22 08/25/22 Range/Units 05:40 06:55 WBC 14.92 H (4.8-10.8) K/ul RBC 4.18 L (4.20-5.40) M/uL Hgb 12.4 (12.0-16.0) g/dl Hct 36.4 L (37.0-47.0) % MCV 87.1 (80.0-100.0) fL MCH 29.7 (25.0-34.0) pg MCHC 34.1 (32.0-36.0) g/dL RDW Std Deviation 40.3 (36.4-46.3) fL RDW Coeff of Tremaine 12.6 (11.5-14.5) % Plt Count 308 (130-400) K/uL MPV 8.8 L (9.4-12.4) fL SARS-CoV-2, RNA, NAAT NEGATIVE (NEGATIVE)
[2022-08-25 07:46] LABS: BUN Creatinine Ratio 15.3 (10-20); Calcium 8.8 mg/dl (8.6-10.3); Creatinine Clr Calc Pharmacy 55.9 ml/min; Est GFR (African American) 68.7 ml/min; Est GFR (Non-African American) 59.3 ml/min; Potassium 4.1 mmol/L (3.5-5.1)
--- NOTE | 2022-08-25 08:39 | Hospitalist Progress Note ---
Date of Service August 25, 2022 Assessment & Plan (1) Status post left knee replacement: Plan: POD# 1 s/p LEFT knee replacement w/ Dr West. EBL 10cc WBC elevation suspected to be reactive from surgery/steroids. Afebrile Hgb 14-->12, acute blood loss anemia from surgery as well as dilutional effect from IVF during perioperative period Pain control/bowel regimen/PT/OT per primary service Planning ASA 81mg BID for DVT prophylaxis Planning for HH at d/c per patient. Dispo per orthopedics Of note, UA on pre-op testing appeared infected, no cultures sent. Patient DENIED symptoms of UTI/frequency/burning/dysuria and instructed if develops any of these symptom/fever/etc to call PCP ena and consider tx for such but holding off at this time. (2) Anxiety and depression: Plan: -Continue Lexapro and Wellbutrin reports improvement in mood w/ wellbutrin but anxiety regarding her surgery (3) GERD (gastroesophageal reflux disease): Plan: -Daily famotidine while admitted Plan Thank you for allowing hospitalist service to participate in the care of Ms Collins. Hospitalist service will sign off at this time. Please call with any questions/concerns. Admission and Anticipated Discharge Date Admission Date: August 24, 2022 Supervising Physician Co-Signing Physician Notes The patient was not seen by me. The chart was reviewed. Case discussed with PILAR Win. Agree with assessment and plan Subjective Eval this morning, wanting to go home. Apparently did well with steps. Denies having tx for UTI prior to admission given pre-op UA but she states she hadn't had any urinary symptoms and was at [facility] and not sure how clean her hands were for sample. No CP/SOB but does have a little cough/congestion. 96% on RA and lungs clear on exam. White phlegm production. Issues w/ constipation at baseline and using softeners at home. Discussed ok for dc but if having any fever/chills, CP/SOB, urinary symptoms etc to call PCP ena. Reports anxiety/depression at baseline but much improved since placement on her wellbutrin. Physical Exam Physical Exam: General: WD/WN female sitting up in recliner, wanting to go home HEENT: head normocephalic, atraumatic, mm slightly dry (improved w/ sip of water), trachea midline Resp: CTA, no w/c, on room air CV: RRR, no significant m/r/g, no pitting edema/calf tenderness GI: +BS, soft/NT : no stewart MSK/Neuro: no focal deficits dressing to LLE intact, hemovac w/ scant bloody drainage, sensation intact, pulses palpable witnessed patient ambulate to bathroom w/ wheeled walker w/ supervision but no assistance at all required Psych: AOx3, anxious affect Results & Data Results & Data Vital Signs (Past 12 Hours) Vital Signs Temp Pulse Resp BP Pulse Ox O2 Del Method 08/25/22 06:01 36.9 C 80 18 99/61 L 96 Room Air 08/25/22 00:38 36.9 C 81 15 104/58 L 95 Room Air 08/24/22 20:39 82 18 95 Room Air Laboratory Results 08/25/22 08/25/22 Range/Units 06:55 06:55 WBC 14.92 H (4.8-10.8) K/ul RBC 4.18 L (4.20-5.40) M/uL Hgb 12.4 (12.0-16.0) g/dl Hct 36.4 L (37.0-47.0) % MCV 87.1 (80.0-100.0) fL MCH 29.7 (25.0-34.0) pg MCHC 34.1 (32.0-36.0) g/dL RDW Std Deviation 40.3 (36.4-46.3) fL RDW Coeff of Tremaine 12.6 (11.5-14.5) % Plt Count 308 (130-400) K/uL MPV 8.8 L (9.4-12.4) fL Sodium 139 (136-145) mmol/L Potassium 4.1 (3.5-5.1) mmol/L Chloride 108 H (98-107) mmol/L Carbon Dioxide 24 (21-32) mmol/L Anion Gap 7 (3-11) BUN 15 (6-23) mg/dl Creatinine 0.98 (0.6-1.2) mg/dl Est Cr Clr Drug Dosing 55.9 ml/min Est GFR ( Amer) 68.7 ml/min Est GFR (Non-Af Amer) 59.3 ml/min BUN/Creatinine Ratio 15.3 (10-20) Glucose 126 H (70-99(Fasting)) mg/dl Calcium 8.8 (8.6-10.3) mg/dl PG Care Time/CCT Total # of Minutes Spent Total Time Spent with Patient: Total time spent is greater than 50% in coordination of care (as documented) at patient's floor/unit and/or counseling patient: Coding Level of Care Code 20435 SUB INP/OBS CARE 2/35MIN Diagnoses Status post left knee replacement Z96.652 Anxiety and depression F41.9; F32.A GERD (gastroesophageal reflux disease) K21.9
[2022-08-25] MEDS ORDERED: MULTIVITAMIN TAB PO SCH (09:00)
[2022-08-25] MEDS ORDERED: buPROPion XL 150 MG TABCR PO SCH (09:00)
[2022-08-25] MEDS ORDERED: ESCITALOPRAM OXALATE 20 MG TAB PO SCH (09:00)
[2022-08-25] MEDS ORDERED: POLYETHYLENE (MIRALAX) 17 GM PACK PO SCH (09:00)
[2022-08-25] MEDS ORDERED: CHOLECALCIFEROL 5,000 UNITS 125 MCG TAB PO SCH (09:00)
[2022-08-25] MEDS ORDERED: FAMOTIDINE 20 MG in SYRINGE 3 ML IV SCH (09:00)
[2022-08-25 11:47] LABS: Appearance Urine Cloudy (Clear); Bacteria Urine Automated Negative (Negative); Bilirubin Urine Negative (Negative); Blood Urine Negative (Negative); Color Urine Yellow; Epithelial Cell Urine Auto >30 /lpf (0-5); Glucose Urine UA Negative (Negative); Ketones Urine Negative (Negative); Leukocyte Esterase Urine 2+ (Negative); Nitrite Urine Negative (Negative); Protein Urine Negative (Negative); RBC Urine Automated 0-4 /hpf (0-4); Specific Gravity Urine 1.016 (1.000-1.030); Urobilinogen Urine Negative (Negative); WBC Urine Automated >30 /hpf (0-5); pH Urine 5.5 (4.5-7.5)
--- NOTE | 2022-08-26 10:23 | Discharge Summary ---
Date of Service August 26, 2022 Admission HPI Per Admitting Provider 66-year-old female with past medical history significant for anxiety and depression with ongoing left knee pain. Patient has failed conservative measures including anti-inflammatories and steroid injection, as well as pro tected weightbearing. Pain is interfering with her daily activities. She would like to proceed with surgical intervention. Patient denies headaches, sweats, fevers, chills, double vision, blurred vision, cough, sore throat, dysphagia, chest pain, sob, wheezing, n/v/d/c, numbness, tingling, fatigue, urinary symptoms, mood disorders. ROS positive for left knee pain and stiffness. Admission Exam Per Admitting Provider Constitutional: well developed and well nourished; no acute distress A Eyes: PERRL, conjunctivae normal, anicteric sclerae ENMT: external ear and nose normal, oropharynx normal Neck: trachea midline, no thyromegaly Respiratory: normal respiratory effort, lungs clear to auscultation Cardiovascular: RRR, no murmur, no edema Musculoskeletal: Left knee: Mild joint effusion. Tenderness patellofemoral compartment as well as medial joint line. Stable to valgus and varus stress test. Positive Alice's. Range of motion is 10-110 degrees Skin: no rashes, warm and dry Neurologic: patellar DTR's 2+ bilat, sensation intact Psychiatric: A+Ox3, euthymic affect Principal Diagnosis Left knee osteoarthritis Discharge Exam Left knee: Dressing is clean, dry, intact. Hemovac in place, cali on suction. Toes are mobile with good dorsiflexion. No calf tenderness. Distally neurovascular status and sensation is grossly intact. Constitutional WD/WN, vitals as above Discharge Data Allergies Allergy/AdvReac Type Severity Reaction Status Date / Time raspberry Allergy Hives, Verified 08/25/22 15:14 N/V, sore throat trazodone Allergy Anaphylaxis Verified 08/24/22 05:52 Consultations 08/19/22 16:01 Consult Hospitalist Routine Procedures Performed Operation Date: 08/24/22 07:15 Actual Procedures p Left total knee arthroplasty, lateral release, cali aticoat superficial wound vacuum placement - Hardy West MD Ordered Studies 08/24/22 05:00 US - OR guided needle placemen Routine Hospital Course (1) Primary osteoarthritis of left knee: Postop day 1 left total knee arthroplasty -PT/OT -DVT prophylaxis: SCDs, teds, aspirin 81 mg twice daily -Pain management as written -AM labs: Mild leukocytosis likely reactive due to surgical stress versus perioperative steroids. Patient is asymptomatic. Hemoglobin 12.4 from 14.4 preop. Acute blood loss anemia due to surgical loss versus dilutional. Chemistries are pending. -Discharge planning: Patient will likely need inpatient rehab stay prior to to going home. Patient lives on the third story of her apartment building with 3 flights [address] stairs. Await PT evals. Case management consult placed. Addendum: Patient did very well with stairs wit therapy and recommend d/c home. Patient would like to go home today. Order placed if okay with medicine team. Lab Results 08/24/22 08/25/22 08/25/22 Range/Units 05:40 06:55 06:55 WBC 14.92 H (4.8-10.8) K/ul RBC 4.18 L (4.20-5.40) M/uL Hgb 12.4 (12.0-16.0) g/dl Hct 36.4 L (37.0-47.0) % MCV 87.1 (80.0-100.0) fL MCH 29.7 (25.0-34.0) pg MCHC 34.1 (32.0-36.0) g/dL RDW Std Deviation 40.3 (36.4-46.3) fL RDW Coeff of [place]rem[place] 12.6 (11.5-14.5) % Plt Count 308 (130-400) K/uL MPV 8.8 L (9.4-12.4) fL Sodium 139 (136-145) mmol/L Potassium 4.1 (3.5-5.1) mmol/L Chloride 108 H (98-107) mmol/L Carbon Dioxide 24 (21-32) mmol/L Anion Gap 7 (3-11) BUN 15 (6-23) mg/dl Creatinine 0.98 (0.6-1.2) mg/dl Est Cr Clr Drug Dosing 55.9 ml/min Est GFR ( Amer) 68.7 ml/min Est GFR (Non-Af Amer) 59.3 ml/min BUN/Creatinine Ratio 15.3 (10-20) Glucose 126 H (70-99(Fasting)) mg/dl Calcium 8.8 (8.6-10.3) mg/dl Urine Color Urine Appearance (Clear) Urine pH (4.5-7.5) Ur Specific [place] (1.000-1.030) Urine Protein (Negative) Urine Glucose (UA) (Negative) Urine Ketones (Negative) Urine Blood (Negative) Urine Nitrite (Negative) Urine Bilirubin (Negative) Urine Urobilinogen (Negative) Ur Leukocyte Esterase (Negative) Urine WBC (Auto) (0-5) /hpf Urine RBC (Auto) (0-4) /hpf U Hyaline Cast (Auto) (0-5) /lpf U Epithel Cells (Auto) (0-5) /lpf Urine Bacteria (Auto) (Negative) SARS-CoV-2, RNA, NAAT NEGATIVE (NEGATIVE) 08/25/22 Range/Units 11:19 WBC (4.8-10.8) K/ul RBC (4.20-5.40) M/uL Hgb (12.0-16.0) g/dl Hct (37.0-47.0) % MCV (80.0-100.0) fL MCH (25.0-34.0) pg MCHC (32.0-36.0) g/dL RDW Std Deviation (36.4-46.3) fL RDW Coeff of [place]rem[place] (11.5-14.5) % Plt Count (130-400) K/uL MPV (9.4-12.4) fL Sodium (136-145) mmol/L Potassium (3.5-5.1) mmol/L Chloride (98-107) mmol/L Carbon Dioxide (21-32) mmol/L Anion Gap (3-11) BUN (6-23) mg/dl Creatinine (0.6-1.2) mg/dl Est Cr Clr Drug Dosing ml/min Est GFR ( Amer) ml/min Est GFR (Non-Af Amer) ml/min BUN/Creatinine Ratio (10-20) Glucose (70-99(Fasting)) mg/dl Calcium (8.6-10.3) mg/dl Urine Color Yellow Urine Appearance Cloudy A (Clear) Urine pH 5.5 (4.5-7.5) Ur Specific [place] 1.016 (1.000-1.030) Urine Protein Negative (Negative) Urine Glucose (UA) Negative (Negative) Urine Ketones Negative (Negative) Urine Blood Negative (Negative) Urine Nitrite Negative (Negative) Urine Bilirubin Negative (Negative) Urine Urobilinogen Negative (Negative) Ur Leukocyte Esterase 2+ H (Negative) Urine WBC (Auto) >30 H (0-5) /hpf Urine RBC (Auto) 0-4 (0-4) /hpf U Hyaline Cast (Auto) 10-30 H (0-5) /lpf U Epithel Cells (Auto) >30 H (0-5) /lpf Urine Bacteria (Auto) Negative (Negative) SARS-CoV-2, RNA, NAAT (NEGATIVE) Total Time Total Time Spent Total Time Spent (In Minutes): 20 Discharge Plan Discharge Items Patient Disposition: Home - Home Health Services Reason For Visit: Left Knee Osteoarthritis Discharge Diagnosis: Left knee osteoarthritis Activity: Per Instructions section Non-emergency contact: Surgeon Call non-emergency contact if: you have any medication questions, your pain is not controlled, your pain is concerning for you, you have a fever, your temperature is above 101, your wound has increased redness and your wound has increased drainage Follow-up/Referrals: Kacie Montana CRNP [Primary Care Provider] - 09/01/22 11:05 am Diet: Regular Addtl Attending Provider Instructions: ACTIVITY RECOMMENDATIONS: SELF CARE INSTRUCTIONS AFTER TOTAL KNEE REPLACEMENT A. You may need to continue a physical therapy program after discharge from the hospital. There are several options available to you. Your doctor will assist you in selecting the best one for you. 1. An out-patient facility 2 to 3 times a week for therapy or home therapy. 2. Continue working on all exercises taught to you in the hospital. Your goals should be to increase bending of your knee to 90 degrees and beyond and to fully straighten your knee. B. You may progress at your own pace from walking with a walker or crutches to a cane; then to no assistive devices. C. Make walking a part of your daily routine. Be up as much as comfortable with rest periods throughout the day. Rest with leg elevation is very important. Use the ice wrap frequently for the first 3-4 weeks. D. There are no restrictions on activities. You may ride in a car, shop, participate in healthcare liaison and all social activities. E. Wear the long elastic stockings (MAGUI hose) 20 hours a day for 2 weeks after surgery. They can be removed several times a day for laundering and for a bath. F. You may shower, no tub baths until cleared by your doctor. SPECIAL CARE INSTRUCTIONS: VERY IMPORTANT TO READ AND REVIEW A. There are a few signs you need to watch for after you are home. Call [facility] if you notice any of the followin. Increased severe knee pain. Some pain is expected especially when you exercise. 2. Increased swelling in your leg or knee; pain or swelling of the calf muscle in either lower leg. 3. Any fluid drainage from the incision. 4. Shortness of breath or chest pain. B. Please call [facility] at if you have any concerns or questions about your operation or recovery. The doctor or his nurse will return your call promptly. C. You must take antibiotics before dental work, bladder, bowel or other surgery. Your doctor will provide you with a permanent care to carry describing this precaution. IMPORTANT: * REMEMBER TO TAKE ASPIRIN, 81 MG, TWICE DAILY FOR 4 WEEKS UNLESS OTHERWISE DIRECTED. THIS IS YOUR BLOOD THINNER. * HIGH RISK PATIENTS MAY BE PRESCRIBED A STRONGER BLOOD THINNER. THIS WILL BE PROVIDED AT DISCHARGE. * CALL IF INCREASED PAIN, REDNESS, DRAINAGE OR FEVER GREATER THAT 101. * WEAR MAGUI HOSE 20 HOURS PER DAY FOR 2 WEEKS. This is a large suction dressing covering your incision. This will help pull any excess drainage from the wound and allow your incision to heal properly. You may shower with this if you can keep the unit outside of the shower. If any bleeding or leakage is noted please call your doctor's office. This will remain on your incision for 7 days and then should be removed. This can be done yourself or by the home nursing staff if applicable. The entire unit is disposable once removed. Once removed, keep incision clean and dry. If redness or drainage is noted, please call your surgeon. IF INCISION IS LEAKING THROUGH DRESSING, CALL THE OFFICE . FOLLOW UP VISIT: If appointment is not already scheduled: Please call [facility] to make a follow-up appointment for 2 weeks after your surgery at . Stand-Alone Forms: My [facility], Pain - Opioid Pain Management, Smoking Cessation Medications and DC Order Prescriptions: New aspirin 81 mg Tablet,Delayed Release (Dr/Ec) 81 mg PO BID Qty: 60 0RF oxycodone 5 mg Tablet 5 - 10 mg PO Q4H MDD 6 PRN (Reason: pain) Qty: 60 0RF Rx Instructions: Ongoing therapy, Dr. West supervising celecoxib [Celebrex] 200 mg Capsule 200 mg PO BID Qty: 60 0RF acetaminophen [Tylenol Extra Strength] 500 mg Tablet 1,000 mg PO Q8 Qty: 60 0RF Continued ergocalciferol (vitamin D2) [Vitamin D2] 1,250 mcg (50,000 unit) Capsule 1,250 mcg PO WK escitalopram oxalate 20 mg Tablet 20 mg PO QAM bupropion HCl 150 mg Tablet Extended Release 24 Hr 150 mg PO QAM cholecalciferol (vitamin D3) [Vitamin D3] 125 mcg (5,000 unit) Tablet 125 mcg PO QAM Discontinued acetaminophen-codeine [Tylenol-Codeine #3] 300-30 mg Tablet 1 tab PO DAILY PRN (Reason: Pain) acetaminophen [Tylenol Extra Strength] 500 mg Capsule 500 mg PO Q6H PRN (Reason: Pain) Forteo 20 mcg/dose (600mcg/2.4mL) Pen Injector 20 mcg SUBCUT EMILIANO Spangler/Other Patient Handouts: DVT Post Op Prevention Admission Data Admit Date/Time: 08/24/22 10:36 Attending Provider: Hardy West Admit Provider: Hardy West Primary Care Provider: Kacie Montana Other Providers: [employer] ; [facility] Other Interventions: Discharge Summary Assessment (RN) Last Done: 08/25/22 11:17
[2022-08-28] MEDS ORDERED: ERGOCALCIFEROL 50,000 UNITS 1250 MCG CAP PO SCH (09:00)
== END 2022-08-25 15:17 | disposition home health service (06) ==
LOC: 3E 05:27 → ASU 05:27
DX: M17.12 Unilateral primary osteoarthritis, left knee; Z88.5 Allergy status to narcotic agent; Z91.040 Latex allergy status; Z79.899 Other long term (current) drug therapy